=== PATIENT | female | born 1975 | race Caucasian/White ===

== ENCOUNTER → 2016-10-06 | Outpatient (CLI) | payer BC ==
[~2016-10-06] MED LIST: ADVAIR 250/501 DISK IH; AMOXICILLIN500 MG PO; CLARITIN,ALAVAR10 MG PO; DAILY VITE1 EAC1 PO; ENDOCET 5-3251 EACH PO; HYDROCHLOROTHIA25 MG PO; IBUPROFEN800 MG PO; IRON18 MG PO; IRON325 M1 PO; MEGACE20 MG PO; NORCO 10/3251 TABLET PO; OMNARIS12.5 GM IH; PRINIVIL20 MG PO; XANAX0.25 MG PO
== END | disposition home or self-care (01) ==
LOC: CDC 09:37
DX: Z01.810 Encounter for preprocedural cardiovascular examination (principal)
CPT/HCPCS: 93000

== ENCOUNTER 2016-10-20 10:37 | Day surgery (SDC) | payer BC ==
[~2016-10-20] VITALS: Ht 165.1 cm; Wt 129.3 kg
[~2016-10-20 10:37] MED LIST changes: -ENDOCET 5-3251 EACH PO; -IBUPROFEN800 MG PO; -NORCO 10/3251 TABLET PO
[2016-10-20 11:12] VITALS: BP 104/57
[2016-10-20] MEDS ORDERED: IBUPROFEN800 MG PO (13:47)
[2016-10-20] MEDS ORDERED: ENDOCET 5-3251 EACH PO (13:47)
[2016-10-20] MEDS ORDERED: NORCO 10/3251 TABLET PO (15:19)
[2016-10-20 16:33] VITALS: BP 128/75
[2016-10-20 17:40] VITALS: BP 140/79
[2016-10-20 18:35] VITALS: BP 137/79
== END 2016-10-20 18:40 | disposition home or self-care (01) ==
LOC: SDC 10:37
DX: N93.9 Abnormal uterine and vaginal bleeding, unspecified (principal); N85.2 Hypertrophy of uterus; D25.9 Leiomyoma of uterus, unspecified; N85.00 Endometrial hyperplasia, unspecified; E66.01 Morbid (severe) obesity due to excess calories; Z68.42 Body mass index [BMI] 45.0-49.9, adult; J45.909 Unspecified asthma, uncomplicated; G43.909 Migraine, unspecified, not intractable, without status migrainosus; I10 Essential (primary) hypertension; F41.9 Anxiety disorder, unspecified; Z91.040 Latex allergy status; Z88.1 Allergy status to other antibiotic agents; Z82.3 Family history of stroke; Z82.49 Family history of ischemic heart disease and other diseases of the circulatory system; Z82.5 Family history of asthma and other chronic lower respiratory diseases; Z80.0 Family history of malignant neoplasm of digestive organs; Z83.49 Family history of other endocrine, nutritional and metabolic diseases
CPT/HCPCS: 88307; J0131; J0330; J0690; J1100; J1170; J2405; J2710; J3010